=== PATIENT | female | born 2000 | race Caucasian/White ===

== ENCOUNTER 2020-04-18 14:47 | Emergency (ER) | payer OTHER, SELFPAY ==
[2020-04-18 15:05] VITALS: BP 120/76; PULSE 76; RESP 16; TEMP 36.4; O2SAT 99
--- NOTE | 2020-04-18 15:07 | ED.FEMALEGU ---
HPI - Female Genitourinary General Chief complaint: Urogenital-Female Stated complaint: Possible Uti Time Seen by Provider: 04/18/20 15:07 Source: patient and RN notes reviewed Mode of arrival: ambulatory Limitations: no limitations History of Present Illness HPI Narrative: This is a 19 years old female presents to the office for an evaluation of possible UTI. She complains of urinary frequency, burning at time especially after sex. Denies vaginal itchy, discharge or foul odor. She is sexually active with one partner. Denies history of STIs in the past. Related Data Home Medications Medication Instructions Recorded Confirmed dicyclomine mg 04/18/20 fluticasone propionate INTRANASAL 04/18/20 omeprazole 04/18/20 Allergies Allergy/AdvReac Type Severity Reaction Status Date / Time diclofenac Allergy Intermediate rash Verified 08/26/19 16:16 Review of Systems Review of Systems: Narrative: CONSTITUTIONAL: Denies fever or feeling ill ENT: Denies congestion CARDIOVASCULAR: Denies chest pain RESPIRATORY: Denies dyspnea GASTROINTESTINAL:Reports abdominal pain, nausea, vomiting, diarrhea contribute to her IBS. GENITOURINARY:Reports urinary frequency, pain at times with urgency. Denies discharge SKIN: Denies rash MUSCULOSKELETAL: Denies acute back pain NEUROLOGIC: Denies lightheaded PMFSH Past Medical History Medical History (Updated 04/18/20 @ 15:33 by KATERIN Fofana) GERD (gastroesophageal reflux disease) IBS (irritable bowel syndrome) Comments At time of signature, I agree with nursing past medical, surgical, social and family history. There is no relevant family history pertinent to the presenting complaint. Exam Narrative: Exam Narrative: GENERAL: This is a well-nourished, well-developed patient, in no apparent distress. CARDIOVASCULAR: Regular rate and rhythm without murmurs, gallops, or rubs. RESPIRATORY: Clear to auscultation. Breath sounds equal bilaterally. No wheezes, rales, or rhonchi. GASTROINTESTINAL: Abdomen soft, non-tender, nondistended. Bowel sounds are active. No hepato-splenomegaly, or palpable masses. No guarding. SKIN: warm, intact with no suspicious lesions or rash, good texture and turgor. NEURO: awake, alert, and oriented to person, place and time. There were no obvious focal neurologic abnormalities. Steady gait BACK: No flank tenderness. [place] Coma Scale Eye Opening: Spontaneous 4 [place] Coma Scale Motor: Obeys Commands 6 [place] Coma Scale Verbal: Oriented 5 Course Vital Signs Vital signs: Vital Signs Temperature 97.6 F 04/18/20 15:05 Pulse Rate 76 04/18/20 15:05 Respiratory Rate 16 04/18/20 15:05 Blood Pressure 120/76 04/18/20 15:05 Pulse Oximetry 99 04/18/20 15:05 Temperature 97.6 F 04/18/20 15:05 Pulse Rate 76 04/18/20 15:05 Respiratory Rate 16 04/18/20 15:05 Blood Pressure 120/76 04/18/20 15:05 Pulse Oximetry 99 04/18/20 15:05 MDM - Female Genitourinary MDM Narrative Medical decision making narrative: After discussing urine test results with the patient, she want to go ahead and get tested for STIs at this time. However she does not want to be treated until she knows the test result. Discharge instructions reviewed with patient, as well as provided in writing per nursing staff. The instructions also include specific and strict return/GO TO THE ER as well as f/u information. All questions have been answered, and the patient deny any further questions with discharge and discharge plan. Differential Diagnosis Differential diagnosis: Likely urinary tract infection, bacterial vaginosis, trichomoniasis, cervicitis, vaginitis, cystitis and dysmenorrhea Critical Care Time Critical Care Time Critical Care Time: No Discharge Plan Discharge Clinical Impression: Dyspareunia Patient Disposition: Home, Self-Care Condition: Stable Additional Instructions: Urine analysis in the office did not show sign of bladde
== END 2020-04-18 15:35 | disposition home or self-care (01) ==
PROVIDERS: Emergency Provider Nurse Practitioner
DX: N94.10 Unspecified dyspareunia (principal); A56.8 Sexually transmitted chlamydial infection of other sites; K21.9 Gastro-esophageal reflux disease without esophagitis; K58.9 Irritable bowel syndrome, unspecified
CPT/HCPCS: 81003; 87491; 87591; 87661; 99214; G0463